=== PATIENT | male | born 1980 | race Caucasian/White ===

== ENCOUNTER 2018-02-10 20:13 | Emergency (ER) | payer OTHER ==
[2018-02-10 20:31] VITALS: BP 145/99
--- NOTE | 2018-02-10 20:59 | UC ---
Knee Pain HPI - HPI Summary HPI Summary: 37 yo male was at work a few nighs ago he was trying to loosen a nut he stood on the wrench and jumped it felt like he was struck in the R calf with a bat calf swelled and bruised but he could walk with minimal pain Today while turkey hunting he tried to run As he pushed off with his R leg his pain increased and he fell to the ground He had to limp back to his car using his gun as a crutch bears wt with extreme pain - History of Current Complaint Chief Complaint: UCLowerExtremity Stated Complaint: LEG INJURY Time Seen by Provider: 02/10/18 20:29 Hx Obtained From: Patient Onset/Duration: Sudden Onset, Lasting Days Severity Currently: Moderate Pain Intensity: 0 - sitting Pain Scale Used: 0-10 Numeric Character: Aching, Throbbing, Spasmodic Aggravating Factor(s): Movement, Weight Bearing, Prolonged Standing Alleviating Factor(s): Rest Associated Signs And Symptoms: Positive: Swelling, Bruising Able to Bear Weight: Yes - Allergies/Home Medications Allergies/Adverse Reactions: Allergies Allergy/AdvReac Type Severity Reaction Status Date / Time No Known Allergies Allergy Verified 02/10/18 20:24 Home Medications: Home Medications Acetaminophen [Tylenol] 975 mg PO Q12HR PRN 02/10/18 [History Confirmed 02/10/18 ] PMH/Surg Hx/FS Hx/Imm Hx Previously Healthy: Yes - Surgical History Surgical History: None - Family History Known Family History: Positive: Hypertension - Social History Alcohol Use: Occasionally Substance Use Type: None Smoking Status (MU): Current Every Day Smoker Type: Cigarettes Amount Used/How Often: 1/2 PPD Review of Systems Constitutional: Negative Skin: Bruising Eyes: Negative ENT: Negative Respiratory: Negative Cardiovascular: Negative Gastrointestinal: Negative Genitourinary: Negative Motor: Negative Neurovascular: Negative Musculoskeletal: Myalgia Neurological: Negative Psychological: Negative Is Patient Immunocompromised?: No All Other Systems Reviewed And Are Negative: Yes Physical Exam Triage Information Reviewed: Yes Vital Signs: Initial Vital Signs Temp 98.9 F 02/10/18 20:25 Pulse 85 02/10/18 20:25 Resp 18 02/10/18 20:25 BP 145/99 02/10/18 20:25 Pulse Ox 95 02/10/18 20:25 Eyes: Positive: Conjunctiva Clear ENT: Positive: Hearing grossly normal. Negative: Nasal congestion, Nasal drainage, Trismus, Muffled voice, Hoarse voice Neck: Positive: Supple Respiratory: Positive: Lungs clear, Normal breath sounds, No respiratory distress, No accessory muscle use Cardiovascular: Positive: RRR, No Murmur Musculoskeletal: Positive: Edema @ - medial calf (R) Neurological Exam: Normal Psychological Exam: Normal Skin Exam: Normal Knee Pain Course/Dx - Differential Dx/Diagnosis Provider Diagnoses: tear of the medial belly of the right gastrocnemius muscle Discharge - Sign-Out/Discharge Documenting (check all that apply): Discharge/Admit/Transfer - Discharge Plan Condition: Stable Disposition: HOME Patient Education Materials: Muscle Strain (ED), Crutch Instructions (ED) Forms: *Work Release Referrals: Starla Garza MD [Medical Doctor] - As Soon As Possible Additional Instructions: rest ice elevation I THINK YOU HAVE TORN THE MEDIAL BELLY OF YOUR GASTROCNEMIUS MUSCLE you need to follow up with an orthopedist When I had a similar injury I found using a CHO-PAT calf sleeve helped a lot (I bought mine on line) CAM boot Crutches advil or aleve - Billing Disposition and Condition Condition: STABLE Disposition: HOME Images Front/Back of Body, Lg ([place]): 1 - tender/swollen/ecchymotic medial calf/no pain with dorsiflexion
== END 2018-02-10 21:25 | disposition home or self-care (01) ==
LOC: UCEAST 20:13
DX: S86.811A Strain of other muscle(s) and tendon(s) at lower leg level, right leg, initial encounter (principal); X58.XXXA Exposure to other specified factors, initial encounter; Y93.89 Activity, other specified; Y92.9 Unspecified place or not applicable; F17.210 Nicotine dependence, cigarettes, uncomplicated
CPT/HCPCS: 99213; G0463